=== PATIENT | male | born 1970 | race Caucasian/White ===

== ENCOUNTER 2020-06-24 07:47 | Emergency (ER) | payer OTHER ==
[~2020-06-24] VITALS: Ht 180.3 cm; Wt 80.3 kg
--- OUTSIDE RECORDS SUMMARY | ~2020-06-24 | XMS | Encounter Summary ---
Demographics + + + | Address | [address] | | | [place] [address] | + + + | Home Phone | | + + + | Preferred Language | Unknown | + + + | Marital Status | Single | + + + | Restoration Affiliation | 1038 | + + + | Race | or | + + + | Ethnic Group | Not or | + + + Author + + + | Author | [facility] | | | and [place] | + + + | Organization | [facility] | | | and [place] | + + + | Address | Unknown | + + + | Phone | Unavailable | + + + Support + + + + + | Name | Relationship | Address | Phone | + + + + + | Jeferson To | ECON | [address] | | | | | [place] | | | | | [address] | | + + + + + | Ileana To | ECON | [address] | | | | | [place] [address] | | + + + + + Care Team Providers + +------+ + | Care Clay Artisan Name | Role | Phone | + +------+ + | Alin Roy DO | PCP | | + +------+ + Encounter Details +--------+ + + + + | Date | Type | Department | Care Team | Description | +--------+ + + + + | 01/18/ | Hospital | [facility] | Harrison Perea, | | | 2012 | Encounter | MED CTR EMERGENCY | [place] [address] | | | | | [place] [address] | [facility] | | | | | [place] | [place] [address] | | | | | [address] | [phone] | | | | | [phone] | | | +--------+ + + + + Social History + +-------+ +--------+------+ | Tobacco Use | Types | Packs/Day | Years | Date | | | | | Used | | + +-------+ +--------+------+ | Never Assessed | | | | | + +-------+ +--------+------+ + + + | Sex Assigned at | Date Recorded | | | | + + + | Not on file | | + + + documented as of this encounter Medications at Time of Discharge + + + +---------+ + + | Medication | Sig | Dispensed | Refills | Start | End Date | | | | | | Date | | + + + +---------+ + + | Acetaminophen | TABS Take one-two by | | 0 | 06/14/20 | | | (TYLENOL EXTRA | mouth daily | | | 12 | 9 | | STRENGTH PO) | | | | | | + + + +---------+ + + | cyclobenzaprine | Take 10 mg by mouth | | 0 | 10/06/19 | | | (FLEXERIL) 10 mg | 3 times daily. | | | 12 | 9 | | tablet | | | | | | + + + +---------+ + + | gabapentin | two tablets by mouth | | 0 | 12/19/19 | | | (NEURONTIN) 300 mg | three times daily | | | 12 | 9 | | capsule | | | | | | + + + +---------+ + + | | Take 25 mg by mouth | | 0 | 06/14/20 | | | hydrochlorothiazide | Daily. | | | 12 | 9 | | 25 mg tablet | | | | | | + + + +---------+ + + | nortriptyline | one cap by mouth | | 0 | 01/25/20 | | | (PAMELOR) 10 MG | every at bedtime , | | | 12 | 9 | | capsule | increase by one | | | | | | | tablet every 3 days | | | | | | | until at 50 tablets. | | | | | + + + +---------+ + + | predniSONE | take 20mg three | | 0 | 06/14/20 | | | (DELTASONE) 10 mg | times a day | | | 12 | 9 | | tablet | | | | | | + + + +---------+ + + documented as of this encounter ED Notes Harrison Perea MD - 01/18/2013 9:08 [place] [address] Patient Name: BILLY TO Provider: Unit #: [id number] Location: : 1970 DATE: 01/18/2013 IDENTIFICATION: A 42-year-old male. CHIEF COMPLAINT: Right knee pain. HISTORY OF PRESENT ILLNESS: This patient presented to the emergency department for evaluat ion. He has had some right knee pain for the last 3 weeks, but today it popped and got roxanne re, prompting him to seek medical attention and came to the ER to be evaluated. He has had problems with his the right knee before. He says he needs to have surgery to clean out scar tissue and loose bodies, but he has been unable to do that, so he has just been getting by , but then today when the knee popped and became very painful, he was concerned and came to the ER for evaluation. PAST MEDICAL HISTORY: He has had left hand surgery and has chronic back pain. MEDICATIONS: Meloxicam. ALLERGIES: NONE REPORTED. SOCIAL HISTORY: He is giving his own history. He does smoke cigarettes, not working KILTR, no primary care provider. REVIEW OF SYSTEMS MUSCULOSKELETAL: Right knee pain, also has developed right knee swelling. All other systems reviewed and found negative. PHYSICAL EXAMINATION VITAL SIGNS: Blood pressure 146/89, pulse 73, respirations 16, temperature 95.8, saturatio n 98% on room air. GENERAL: Well-nourished 42-year-old male. HEENT: No trauma. Pupils equal. NECK: Supple, nontender. HEART: Regular. LUNGS: Clear. ABDOMEN: Soft, nontender. EXTREMITIES: Warm and well perfused. He does have some mild swelling of the right knee. Th e patella is ballottable. There is no open wound. No popliteal fossa mass. No obvious ligam ent laxity. Left knee exam is normal. BACK: Thoracic and lumbar spine are nontender. EMERGENCY DEPARTMENT COURSE: The patient was seen and examined shortly after arriving in [facility] emergency department. History and physical obtained, vital signs are noted. Radiographs are obtained of the right knee. He does have an effusion that is small to medium and there is a lot of DJD of the knee, but no obvious acute bony pathology. Alignment appears normal. We are placing him in a knee immobilizer and crutches. Outpatient treatment is indicated, he will be able to be discharged. IMPRESSION 1. ACUTE RIGHT KNEE PAIN, SUSPECT INTERNAL DERANGEMENT. 2. DEGENERATIVE JOINT DISEASE OF THE RIGHT KNEE. PLAN: The patient will be discharged in unchanged condition. Tramadol, continue meloxicam, knee brace and crutches for at least a week, toe-touch weightbearing. Follow up with prima care provider in 1 week for a recheck. Return immediately if he worsens or other problem s or concerns develop. DICTATED BY: Harrison Perea MD Emergency Medicine JOB #: [id number] EXT JOB #:[id number] <<Signature on File>> Harrison Perea MD 0224 < documented in this encounter Plan of Treatment Not on filedocumented as of this encounter Procedures + +--------+ + + + | Procedure Name | Priori | Date/Time | Associated Diagnosis | Comments | | | ty | | | | + +--------+ + + + | XR KNEE RIGHT 4 + VW | Routin | 01/19/2013 | | Results for this | | | e | 8:07 AM | | procedure are in the | | | | PDT | | results section. | + +--------+ + + + documented in this encounter Results XR Knee Right 4 + Vw (01/19/2013 8:07 AM PDT) + + | Specimen | + + | | + + + + + | Narrative | Performed At | + + + | [facility] | [place] | | Department [address] [facility] | | [ rep [address]] [ rep [facility] | | [facility]] Signed | - IMAGING | | | | | Patient Name: BILLY TO Physician: | | | BROW.01 : 1970 Age: 42 Sex: M Unit #: [id number] | | | Exam Date: 01/18/13 Location: ER | | | Report #: [id number] Page: | | | %(RAD)RES..mtdd.print.filter("pg") of %(RAD) | | | RES..mtdd.print.filter("tpg") | | | | | | Accession Number: [id number] | | | RIGHT KNEE 01/18/2013 CLINICAL HISTORY: RIGHT KNEE | | | PAIN. COMPARISON: None. FINDINGS: Frontal | | | and lateral views of the right knee. Mild tricompartmental changes. | | | Normal alignment. A small 6 mm lucency seen on one view projecting | | | over the intercondylar notch. Given its appearance this may | | | represent subchondral cyst due to overlying cartilage disease. No | | | fracture. No significant joint effusion. No radiopaque foreign | | | bodies. IMPRESSION: 1. NO ACUTE OSSEOUS | | | ABNORMALITY. 2. TRICOMPARTMENTAL DEGENERATIVE CHANGES. | | | Dictated Date/Time: 01/19/2013 08:07 Transcribed | | | Date/Time: 01/19/2013 09:13 Ortho Rn: | | | <<Signature on File>> | | | Kuldeep | | | Papo Castellon MD01/19/132102 <Electronically signed by Kuldeep Barros | | | Ravinder NICOLE> Kuldeep Castellon MD 01/19/13806 | | | Ortho Rn: LilaKutunitin Xklrmdkyztlcf75/20/13912 | | | | | + + + + + + + + | Performing | Address | City/State/Zipcode | Phone Number | | Organization | | | | + + + + + | [address] | [address] | [place] | [phone] | | [facility] | | [address] | | | - IMAGING | | | | + + + + + documented in this encounter Visit Diagnoses Not on filedocumented in this encounter
--- OUTSIDE RECORDS SUMMARY | ~2020-06-24 | XMS | Encounter Summary ---
Demographics + + + | Address | [address] | | | [place] [address] | + + + | Home Phone | | + + + | Preferred Language | Unknown | + + + | Marital Status | Single | + + + | Hindu Affiliation | 1038 | + + + | Race | or | + + + | Ethnic Group | Not or | + + + Author + + + | Author | [facility] | | | and [place] | + + + | Organization | [facility] | | | and [place] | + + + | Address | Unknown | + + + | Phone | Unavailable | + + + Support + + + + + | Name | Relationship | Address | Phone | + + + + + | Jeferson Rajput | ECON | [address] | | | | | [place] | | | | | [address] | | + + + + + | Ileana Rajput | ECON | [address] | | | | | [place] [address] | | + + + + + Care Team Providers + +------+ + | Care Rent And Housing Investigator Name | Role | Phone | + +------+ + PCP | Unavailable | + +------+ + Encounter Details +--------+ + + + + | Date | Type | Department | Care Team | Description | +--------+ + + + + | 09/10/ | Hospital | [facility] | [place], | | | 2008 | Encounter | MED CTR EMERGENCY | Kvng Escamilla MD [address] | | | | | [place] [address] | [address] [facility] | | | | | [place], [place] | [place] [address] | | | | | [address] | [phone] | | | | | [phone] | | | +--------+ + + + [...] + + documented as of this encounter Plan of Treatment Not on filedocumented as of this encounter Visit Diagnoses Not on filedocumented in this encounter"
--- OUTSIDE RECORDS SUMMARY | ~2020-06-24 | XMS | Encounter Summary ---
Demographics + + + | Address | [address] | | | [place] [address] | + + + | Home Phone | | + + + | Preferred Language | Unknown | + + + | Marital Status | Single | + + + | Restorationist Affiliation | 1038 | + + + | Race | or | + + + | Ethnic Group | Not or | + + + Author + + + | Author | [facility] | | | and [place] | + + + | Organization | [facility] | | | and [place] [...] [place] | | | | | [address] | | + + + + + | Ileana To | ECON | [address] | | | | | [place] [address] | | + + + + + Care Team Providers + +------+ + | Care Ribbon Lap Machine Tender Name | Role | Phone | + +------+ + | Alin Roy DO | PCP | | + +------+ + Encounter Details +--------+ + + + + | Date | Type | Department | Care Team | Description | +--------+ + + + + | 06/09/ | Hospital | [facility] | Zohreh Krishnamurthy | | | 2013 | Encounter | MED CTR EMERGENCY | DO Isaiah Car | | | | | [place] [address] | [place], [place] | | | | | [place], [place] | [address] | | | | | [address] | | | | | | [phone] | Ish [place], | | | | | | [place] [address] | | | | | | [place], [place] | | | | | | [address] | | | | | | | | +--------+ + + + [...] documented as of this encounter ED Notes Ish Reid MD - 06/09/2013 10:08 [place] [address] Patient Name: BILLY TO Provider: Unit #: [id number] Location: [facility] #: [id number] : 1970 DATE: 06/09/2013 HISTORY OF PRESENT ILLNESS: This is a 42-year-old male complaining of chronic low back brittany n, worse over the last 2 days. He has chronic left-sided sciatica and history of hypertensi on, smokes tobacco. He has had no recent injury. Describes his pain as 8/10. No bowel or bl adder incontinence. No saddle anesthesia. He has taken Meloxicam and tramadol in the past f or this. ALLERGIES: NO ALLERGIES. REVIEW OF SYSTEMS: Complete review of systems negative except as detailed in the HPI above . PHYSICAL EXAMINATION VITAL SIGNS: Blood pressure is 123/81, heart rate 78, respirations 16, afebrile, 99% on ro om air. GENERAL: No distress. HEENT: Pupils equal and reactive to light and accommodation. Extraocular movements intact. Oral mucosa moist. NECK: Supple, nontender. CARDIAC: Normal S1, S2. LUNGS: Sounds clear to auscultation bilaterally. ABDOMEN: Soft, nontender, nondistended. Normal bowel sounds. NEUROLOGIC: Cranial nerves 2 through 12 intact. Normal sensation, motor, and strength in a ll 4 extremities. Negative straight leg raise bilaterally. SKIN: No saddle anesthesia. BACK: He has tenderness to palpation over the left lower back. No bony tenderness, crepitu s or step- offs. ASSESSMENT AND PLAN: A 42-year-old with diagnosis of SCIATICA, ACUTE ON CHRONIC LEFT-SIDED . He was given tramadol in the ER, discharged home with Tramadol and Mobic. Will followup w [facility] primary care and return if any new concerning symptoms. DICTATED BY: Ish Reid M.D. Emergency Medicine JOB #: [id number] EXT JOB #:[id number] <<Signature on File>> Ish Reid MD0 06/11/132046 < documented in this encounter Plan of Treatment Not on filedocumented as of this encounter Visit Diagnoses Not on filedocumented in this encounter"
--- OUTSIDE RECORDS SUMMARY | ~2020-06-24 | XMS | Clinical Summary ---
Demographics + + + | Address | [address] | | | [place] [address] | + + + | Home Phone [...] Author + + + | Author | [facility] | | | and [place] | + + + | Organization | [facility] | | | and [place] | + + + | Address | Unknown | + + + | Phone | Unavailable | + + + Support + + + + + | Name | Relationship | Address | Phone | + + + + + | Jeferson Rajput | ECON | [address] | | | | | [place] | | | | | [address] | | + + + + + | Ileana Rajput | ECON | [address] | | | | | [place] [address] | | + + + + + Care Team Providers + +------+ + | Care Check Weigher Name | Role | Phone | + +------+ + | Kvng Olivares | STEPHANIE | | + +------+ + Allergies No Known Allergies Medications + + + +---------+------+------+-------+ | Medication | Sig | Dispensed | Refills | Star | End | Statu | | | | | | t | Date | s | | | | | | Date | | | + + + +---------+------+------+-------+ | methylPREDNISolone | Follow package | 21 | 0 | 12/2 | | Activ | | (MEDROL DOSEPAK) 4 | directions. | tablet | | 04/20 | | e | | mg tablet | | | | 19 | | | + + + +---------+------+------+-------+ Active Problems + + + | Problem | Noted Date | + + + | SCIATICA | 10/06/2011 | + + + | BACK PAIN, LUMBAR, CHRONIC | 10/06/2011 | + + + | HERNIATED LUMBAR DISC | 10/06/2011 | + + + | TOBACCO USE | 10/06/2011 | + + + | HYPERTENSION | | + + + | FAMILY HISTORY OF ASTHMA | | + + + Family History + + +------+ + | Medical History | Relation | Name | Comments | + + +------+ + | Colon cancer | Father | | | + + +------+ + | Diabetes, NIDDM | Father | | | + + +------+ + | Heart disease | Father | | 5v CABG | + + +------+ + | Hypertension | Father | | | + + +------+ + | No known problems | Maternal | | | | | Grandfath | | | | | er | | | + + +------+ + | No known problems | Maternal | | | | | Grandmoth | | | | | er | | | + + +------+ + | No known problems | Mother | | | + + +------+ + | No known problems | Paternal | | | | | Grandfath | | | | | er | | | + + +------+ + | No known problems | Paternal | | | | | Grandmoth | | | | | er | | | + + +------+ + + +------+ + + | Relation | Name | Status | Comments | + +------+ + + | Father | | | Colon Cancer | | | | (Age | | | | | 64) | | + +------+ + + | Maternal Grandfather | | | | + +------+ + + | Maternal Grandmother | | | | + +------+ + + | Mother | | Alive | | + +------+ + + | Paternal Grandfather | | | | + +------+ + + | Paternal Grandmother | | | | + +------+ + + Social History + + + +--------+------+ | Tobacco Use | Types | Packs/Day | Years | Date | | | | | Used | | + + + +--------+------+ | Current Every Day | Cigarettes | 0.5 | 15 | | | Smoker | | | | | + + + +--------+------+ + +---+---+---+ | Smokeless Tobacco: | | | | | Never Used | | | | + +---+---+---+ + + +---------+ + | Alcohol Use | Drinks/Week | oz/Week | Comments | + + +---------+ + | Yes | | | Ocassionally | + + +---------+ + + + + | Sex Assigned at | Date Recorded | | | | + + + | Not on file | | + + + Last Filed Vital Signs + + + + + | Vital Sign | Reading | Time Taken | Comments | + + + + + | Blood Pressure | 132/86 | 09/27/2019 10:53 AM | | | | | PST | | + + + + + | Pulse | 66 | 09/27/2019 10:53 AM | | | | | PST | | + + + + + | Temperature | - | - | | + + + + + | Respiratory Rate | 16 | 09/27/2019 10:53 AM | | | | | PST | | + + + + + | Oxygen Saturation | - | - | | + + + + + | Inhaled Oxygen | - | - | | | Concentration | | | | + + + + + | Weight | 97.1 kg (214 lb) | 09/27/2019 10:53 AM | | | | | PST | | + + + + + | Height | 180.3 cm (5' 11") | 09/27/2019 10:53 AM | | | | | PST | | + + + + + | Body Mass Index | 29.85 | 09/27/2019 10:53 AM | | | | | PST | | + + + + + Plan of Treatment + + +-------+ + | Health Maintenance | Due Date | Last | Comments | | | | Done | | + + +-------+ + | Hepatitis C | | | | | Screening | 2 | | | + + +-------+ + | Vaccine: | | | | | Pneumococcal 19-64 | 8 | | | | (1 of 1 - PPSV23) | | | | + + +-------+ + | Vaccine: | | | | | Dtap/Tdap/Td (1 - | 1 | | | | Tdap) | | | | + + +-------+ + | Vaccine: Influenza | | | | | (#1) | 0 | | | + + +-------+ + Results Not on filefrom Last 3 Months Insurance + +--------+ +--------+ +---------+--------+ | Payer | Benefi | Subscriber | Effect | Phone | Address | Type | | | t Plan | ID | berenice | | | | | | / | | Dates | | | | | | Group | | | | | | + +--------+ +--------+ +---------+--------+ | [employer] | [employer] | [id number] | | [phone] | | Medica | | MEDICAID HMO | HEALTH | | [phone]-Pr | 1 | | id | | | MDCD | | esent | | | | | | HMO OR | | | | | | + +--------+ +--------+ +---------+--------+ + +--------+ +--------+ + + | Guarantor Name | Accoun | Relation to | Date | Phone | Billing Address | | | t Type | Patient | of | | | | | | | | | | + +--------+ +--------+ + + | Billy Rajput | Person | Self [birth year] | NEED ADDRESS | | | al/Fam | | 1970 | [phone] | [place] | | | [place] | | | [address] (Home) | [address] | + +--------+ +--------+ + + Advance Directives + + + + + | Type | Date Recorded | Patient | Explanation | | | | Asp Net Developer | | + + + + + | Power of | | | | | Reinforced Ironworker | | | | + + + + + | Advance | | | | | Directive | | | | + + + + +
--- OUTSIDE RECORDS SUMMARY | ~2020-06-24 | XMS | Encounter Summary ---
Demographics + + + | Address | [address] | | | [place] [address] | + + + | Home Phone | | + + + | Preferred Language | Unknown | + + + | Marital Status | Single | + + + | Spiritism Affiliation | 1038 | + + + | Race | or | + + + | Ethnic Group | Not or | + + + Author + + + | Author | [facility] | | | and [place] | + + + | Organization | [facility] | | | and [place] | + + + | Address | Unknown | + + + | Phone | Unavailable | + + + Support + + + + + | Name | Relationship | Address | Phone | + + + + + | Jeferson Rajput | ECON | [address] | | | | | [place] | | | | | [address] | | + + + + + | Ileana Rajput | ECON | [address] | | | | | [place] [address] | | + + + + + Care Team Providers + +------+ + | Care Noodle Catalyst Maker Name | Role | Phone | + +------+ + | Alin Roy DO | PCP | | + +------+ + Encounter Details +--------+ + + + + | Date | Type | Department | Care Team | Description | +--------+ + + + + | 01/25/ | Hospital | [facility] | [place], | | | 2011 | Encounter | MED CTR EMERGENCY | Kvng Escamilla MD [address] | | | | | [place] [address] | [facility] | | | | | [place] | [place] [address] | | | | | [address] | [phone] | | | | | [phone] | | | +--------+ + + + [...] documented as of this encounter ED Notes Kvng Todd MD - 01/26/2012 5:03 PM PDTDATE: 01/26/2012 TIME: 1717. CHIEF COMPLAINT: Dental pain. PRIMARY CARE PHYSICIAN: Dr. Roy. HISTORY OF PRESENT ILLNESS: This is a 41-year-old male who returns to the ED. He complains today of d ental pain in his right lower central incisor. He has had chronic pain in this t ooth, it has been chr onically infected. He just finished antibiotics 3 days ago. He state s he is seeing the dentist [place] ochoa (today is ). He requests some additional pain m edications. He states he is going to run ou t of his tramadol tomorrow. He has had no fever s, chills, no difficulty speaking or swallowing. No ot her complaints. PAST MEDICAL HISTORY: He has had hypertension, chronic back pain. CURRENT MEDICATIONS 1. Tramadol. 2. Hydrochlorothiazide. 3. Gabapentin. ALLERGIES: NONE. REVIEW OF SYSTEMS: Ten-system review negative except as noted above. SOCIAL HISTORY: Smokes tobacco. PHYSICAL EXAMINATION VITAL SIGNS: Blood pressure 142/95, heart rate 93, respirations 18, temperature 98.2, O2 sa turation 9 9%. GENERAL APPEARANCE: male, sitting up, speaking normally. HEENT: Focused dental exam shows multiple carious teeth on the bottom. He has dentures on t he top. Ri ght lower central incisor is carious, quite decayed and tender. The gum line dariel ears normal. Mouth fl oor is soft. Mucous membranes are moist. Speech is normal. EMERGENCY DEPARTMENT COURSE: I went ahead and performed a dental block using 2.5 mL of bupi vacaine wi th epinephrine with good resultant anesthesia. At this point, I do not think thi s tooth needs additio nal antibiotics, it just simply needs to be pulled, which is the plan for Monday. I told the patient I could not refill his pain medications, he will need to ta lk to Dr. Roy for that. The patient was discharged ambulatory. IMPRESSION DENTALGIA. DICTATED BY: Kvng Todd MD Emergency Medicine JOB #: [id number] EXT JOB #:[id number] cc: Alin Roy, <Electronically Signed by Kvng Todd MD> 02/02/12 0850 documented in this encounter Plan of Treatment Not on filedocumented as of this encounter Visit Diagnoses Not on filedocumented in this encounter"
--- OUTSIDE RECORDS SUMMARY | ~2020-06-24 | XMS | Encounter Summary ---
Demographics + + + | Address | [address] | | | [place] [address] | + + + | Home Phone | | + + + | Preferred Language | Unknown | + + + | Marital Status | Single | + + + | Caodaism Affiliation | 1038 | + + + | Race | or | + + + | Ethnic Group | Not or | + + + Author + + + | Author | [facility] | | | and [place] | + + + | Organization | [facility] | | | and [place] [...] [place] | | | | | [address] | | + + + + + | Ileana Rajput | ECON | [address] | | | | | [place] [address] | | + + + + + Care Team Providers + +------+ + | Care Plater Production Name | Role | Phone | + +------+ + | Kvng Olivares | STEPHANIE | | + +------+ + Reason for Visit + + + | Reason | Comments | + + + | New Patient | | + + + | Back Pain | | + + + Evaluate & Treat (Routine) + +--------+ + + + + | Status | Reason | Specialty | Diagnoses / | Referred By | Referred To | | | | | Procedures | Contact | Contact | + +--------+ + + + + | Authorized | | Physical | Diagnoses | Marshall | Roni, | | | | Medicine and | Other | Kvng Mcgrath | Wilton Barros MD | | | | Rehabilitatio | spondylosis, | [address] | [address] | | | | n | lumbosacral | [address] | [address] | | | | | region | [place], | [place] | | | | | | [place] [address] | [address] Phone: | | | | | | Phone: | [phone] | | | | | | [phone] | Fax: | | | | | | Fax: | [phone] | | | | | | [phone] | | + +--------+ + + + + Encounter Details +--------+---------+ + + + | Date | Type | Department | Care Team | Description | +--------+---------+ + + + | 09/27/ | Office | [facility] | Ritu Mays | Other spondylosis | | 2019 | Visit | PHYSIATRY [address] | MARISSA Zamora [address] | with radiculopathy, | | | | [address] | [facility] [address] | lumbar region | | | | [place] | [address] [place] | (Primary Dx); | | | | [address] | [address] | Degenerative lumbar | | | | [phone] | | disc | +--------+---------+ + + + Social History + + + [...] + + documented as of this encounter Last Filed Vital Signs + + + [...] + + + documented in this encounter Patient Instructions Patient Instructions Ritu Mays PA-C - 09/27/2019 10:30 AM PST1. A prescriptio n for Medrol Dosepak which is steroid pills was sent to your pharmacy to be used when you nogueira ve a flare or if your pain is simply elevated. 2. An epidural steroid injection might help your leg pain however your insurance does not cover this service. If you decide you like to try to pursue [facility] [place] to cover this plea se call our office. 3. Continue with physical therapy and consider smoking cessation. How to Quit Smoking Smoking is one of the hardest habits to break. About half of allpeople who have ever smok ed have been able to quit. Most peoplewho still smoke want to quit. Here are some of the b est ways to stop smoking. Keep trying Most smokers make many attempts at quitting before they are successful. It s important no t to give up. Go cold turkey Mostformer smokers quit cold turkey (all at once). Trying to cut back gradually doesn't s eem to work as well, perhaps because it continues the smoking habit. Also, it is possible to inhale more while smoking fewer cigarettes. This results in the same amount of nicotine in your body. Get support Support programs can be a big help, especially for heavy smokers. These groups offer lectur es, ways to change behavior, and peer support. Here are some ways to find a support program: Free national quitline: 962-RUIP-TCQ (282-289-5914). Hospital quit-smoking programs. [place] [employer]: (337.596.8723). [place] [employer] (618-144-1301). Support at home is important too. Nonsmokers can offer praise and encouragement. If the smo ker in your life finds it hard to quit, encourage them to keep trying. Lkkb-jlu-yiohrtp medicines Nicotine replacement therapymay make quittingeasier. Certain aids, such as the nicotine patch, gum, and lozenges, are available without a prescription. Itis best to use these un ariel a doctor s care, though. The skin patch provides a steady supply of nicotine. Nicotine gum and lozenges givetemporary bursts of low levels of nicotine. Both methods reduce the craving for cigarettes. Warning: If youhave nausea, vomiting, dizziness, weakness, or a fa st heartbeat, stop using these products and see your doctor. Prescription medicines After reviewingyour smoking patterns and past attempts to quit, your doctor may offer a p rescription medicine such as bupropion, varenicline, a nicotine inhaler, or nasal spray. Eac h has advantages and side effects. Your doctor can review these with you. Health benefits of quitting The benefits of quitting start right away and keep improving the longer you go without smok ing.These benefits occur at any age. So whether you are 17 or 70, quitting is a good dec ision. Some of the benefits include: 20 minutes: Blood pressure and pulse return to normal. 8 hours: Oxygen levels return to normal. 2 days: Ability to smell and taste begin to improve as damaged nerves regrow. 2 to 3 weeks: Circulation and lung function improve. 1 to 9 months: Coughing, congestion, and shortness of breath decrease; tiredness decreas es. 1 year: Risk of heart attack decreases by half. 5 years: Risk of lung cancer decreases by half; risk of stroke becomes the same as a non smoker s. For more on how to quit smoking, try these online resources: Smokefree.gov "Clearing the Air" booklet from the National Cancer [place]: smokefree.gov/sites/defau lt/files/pdf/znvdegzt-ipl-exx-accessible.pdf Date Last Reviewed: 11/30/201619990933-1940 [employer]. [address] [place] [address], [place] [address]. All righ ts reserved. This information is not intended as a substitute for professional medical care. Always follow your healthcare professional's instructions. documented in this encounter Progress Notes Ritu Mays PA-C - 09/27/2019 10:30 AM PSTFormatting of this note might be diffe rent from the original. Rico Mays PA-C [address] [facility] [place] [place], [address] [place] [address] PHONE: FAX: PHYSIATRY HISTORY AND PHYSICAL EXAMINATION CHIEF COMPLAINT: Chief Complaint Patient presents with New Patient Back Pain HISTORY OF PRESENT ILLNESS: The patient is a 48 y.o. male with the complaint of back sympt oms that began several years ago. The patient describes symptom onset following no particul ar incident. The symptoms have been gradually worsening. He has had pain management in the past which has included medications like methadone and other pain pills. He reports gettin g off of all these medications and going to live with his sister. He currently reports bein g homeless and is not working. He rates the pain as moderate rated a 5/10. The symptoms are daily, continuous. He descri bes the pain as aching, numbing and sharp. He reports that the homeless camp makes mornings very difficult because it is so cold. The patient describes leg symptoms that occur on right side. The leg symptoms account for greater than or equal to 25 % of his symptoms. The leg symptoms are intermittent and the sy mptoms travels from the right lower extremity in a possible L3 or L5 dermatome. His descrip tion is nonspecific. The patient also describes numbness into the phalanx but without derma tomal distribution. The patient does not report any change in bowel or bladder function recently. His symptoms improve with rest, changing position and bending. His symptoms worsen with standing, sitting, walking, kneeling and twisting. He has Medications and PT. Patient has recently attended PT x1 session in the last month. The holidays have required some rescheduling and he had a flare in his pain with the home e xercises prescribed by the therapist. . PAST MEDICAL HISTORY: Past Medical History: Diagnosis Date Cannabis-related disorder (HCC) Degeneration of lumbar intervertebral disc Essential hypertension Family history of colon cancer Nicotine dependence, cigarettes, uncomplicated Spondylolysis, lumbosacral region PAST SURGICAL HISTORY: Past Surgical History: Procedure Laterality Date HAND DEBRIDEMENT Left Skin on L Hand MOUTH SURGERY CURRENT MEDICATIONS: Current Outpatient Medications Medication Sig Dispense Refill methylPREDNISolone (MEDROL DOSEPAK) 4 mg tablet Follow package directions. 21 tablet 0 No current facility-administered medications for this visit. ALLERGIES: No Known Allergies SOCIAL HISTORY: The patient reports that he has been smoking cigarettes. He has a 7.50 pack-year smoking h istory. He has never used smokeless tobacco. He reports current alcohol use. He reports curr ent drug use. Drug: Marijuana. FAMILY HISTORY: Family History Problem Relation Age of Onset No known problems Mother Hypertension Father Heart disease Father 53 5v CABG Colon cancer Father 64 Diabetes, NIDDM Father No known problems Maternal Grandmother No known problems Maternal Grandfather No known problems Paternal Grandmother No known problems Paternal Grandfather REVIEW OF SYSTEMS: GENERALLY: No fever, no night sweats, no anemia, no fatigue, + recent profound weight frances nges. EYES: No eye problems, no impaired sight, no use of corrective lenses, no eye injury, no d ouble vision, no transient blindness. EARS, NOSE, AND THROAT: No changes in taste or smell, no hearing difficulty, no ringing in the ears, no ear drainage, no ear injury, no dizziness, no voice changes, no difficulty swa llowing, no significant snoring, no sleep apnea/CPAP, no sinus problems, no major dental wor k. NEUROLOGICALLY: Please see the review of systems discussed above in the history of present illness. In addition, He has pain in neck, pain back, back injury. PSYCHIATRIC: No depression, no difficulty sleeping, no anxiety, no bipolar disorder. CARDIOVASCULAR: No heart attacks, no heart murmur, no heart fluttering, no chest pain, no ankle swelling. LUNG DISEASE: No shortness of breath, no cough, no tuberculosis, no bloody cough, no asthm a, no emphysema/COPD. GASTROINTESTINAL: No bowel disease, no nausea or vomiting, no rectal bleeding, no constipa tion, no fecal stool incontinence, no liver/gallbladder disease, no abdominal pain, no ulcer s. KIDNEY DISEASE: No urinary frequency, no painful or difficult urination, no urinary incont inence, no bladder problems, no impotence. ENDOCRINE: No diabetes, no thyroid disease, no osteopenia or osteoporosis, no breast drain age. SKIN: No breast lumps, no skin disease or skin changes, no rashes/itches. HEMATOLOGIC/LYMPHATIC: No enlarged lymph nodes, no easy or unusual bleeding, no personal h istory of cancer. RHEUMATOLOGIC: No joint pain/arthritis, no rheumatoid arthritis. PHYSICAL EXAMINATION: Blood pressure 132/86, pulse 66, resp. rate 16, height 1.803 m (5' 11"), weight 97.1 kg (21 4 lb). Body mass index is 29.85 kg/m. GENERAL: Bilyl Rajput is in no acute distress with unlabored respirations. He does not a ppear uncomfortable throughout the exam today. HEENT: Head: Normocephalic/atraumatic with no areas of recent trauma. Eyes: Normal sclerae without icterus. Ears: No drainage or tenderness. Nasopharynx: Clear without drainage. Oropharynx: Clear without erythema. NECK (ANTERIOR): Supple and without palpable masses. CHEST: Unlabored respirations HEART: No lower extremity edema noted ABDOMEN: Soft, non-tender, non-distended, and without palpable masses. The patient is not obese. NEUROLOGICAL: The patient is awake, alert, and oriented to time, place, person. He follows simple and complex commands. His speech is fluent. He comprehends speech well. He has no apparent deficits with short or skilled nursing memory. Cranial nerves 2-12 appear grossly intact. Sensory exam does not show diminished sensation to light touch in the bilateral lower extr emities. EXTREMITIES: No cyanosis, clubbing, or edema. Distal pulses are palpable. PHYSICAL EXAM: MENTAL STATUS: He is awake, alert, and oriented. He follows simple and complex commands. His speech is fluent, he comprehends speech well, and he repeats well. He has no apparent deficits with short or skilled nursing memory. CRANIAL NERVES: II: Acuity is intact. [place] are full to confrontation. III, IV, : The pupils are reactive. Extraocular movements are intact. No ptosis is note d. V: Facial sensation is intact and symmetric. VII: Facial movements are symmetric. VIII: Hearing is intact bilaterally. IX, X: The uvula and palate move appropriately. XI: Shrug is equal bilaterally. XII: Tongue protrusion is midline. MOTOR EXAM: (5 IS NORMAL) * Indicates pain limited MUSCLE/ MOVEMENT: RIGHT LEFT Hip Flexion 5 5 Hip Extension 5 5 Knee Flexion 5 5 Knee Extension 5 5 Dorsiflexion 5 5 Extensor Hallicus Longus 5 5 Plantarflexion 5 5 REFLEXES: (2 OR 2+ IS NORMAL) REFLEX: RIGHT LEFT PATELLAR 1 with distraction 1 with distraction ACHILLES 1 1 GAIT: Gait is steady. Patient can walk on his tiptoes and heels without difficulty. Lumbar flex ion is demonstrated without pain complaints. Lumbar extension produces low back pain. Posi tive facet loading at L4-5 and L5-S1 bilateral. PERIPHERAL NERVE/MISC: There is no tenderness to palpation of her bilateral trochanteric bursa or SI joint region . Straight leg raise is negative bilaterally. Sit slump negative bilateral Nick's test of the hips is negative bilaterally. TEST AND RADIOGRAPHIC REVIEW: His imaging was reviewed in detail today during the visit. The MRI from 11/20/2017 shows L2 -3 new disc bulge compared to prior study. L3-4 disc bulge with facet hypertrophy and moder ate central stenosis. L4-5 disc bulge improved since prior study with moderate central cristian l stenosis. L5-S1 shows disc osteophyte complex with facet hypertrophy with moderately roxanne re central stenosis. Disc desiccation noted with moderate to severe narrowing of both neura l foramen. Lumbar x-rays from 11/10/2017 shows no major instability. ASSESSMENT: NEUROSURGICAL DIAGNOSES: Encounter Diagnoses Name Primary? Other spondylosis with radiculopathy, lumbar region Yes Degenerative lumbar disc GENERAL DIAGNOSES: Past Medical History: Diagnosis Date Cannabis-related disorder (HCC) Degeneration of lumbar intervertebral disc Essential hypertension Family history of colon cancer Nicotine dependence, cigarettes, uncomplicated Spondylolysis, lumbosacral region PLAN: Billy Rajput presented today, and it was a pleasure seeing this patient and assessing his problems. 1) Today we discussed the patient's differential diagnosis with the likely primary issue be ing LUMBAR RADICULOPATHY and lumbar spondylosis. Patient's description of symptoms, physical exam, and imaging suggest this diagnosis at this time. 2) I counseled patient on treatment options which included conservative self management usi ng OTC NSAIDs/Ice and heat packs, physical therapy, prescription medications, epidural stero id injection, neuromodulation therapies, as well as possible surgical intervention. Unfortu nately his insurance does not cover spinal injections such as epidural steroid injections. 3) Imaging: As descibed above in radiology review. 4) The patient has had significant conservative care including medications (NSAIDS and narc otics), PT (multiple sessions over the years) and home care companion. Unfortunately Billy Rajput continues to have significant discomfort. It appears to me that the pain is primarily coming from L5-S1 disc osteophyte complex with severe neuroforaminal narrowing bilateral an d lumbar spondylosis. I did feel that Billy Rajput would be a good candidate for return to physical therapy and additional conservative care including smoking cessation. I did feel that Billy Rajput would be a good candidate for medication: Medrol Dosepak was prescribed to reduce pain. 5) Patient will follow up with me 3 weeks post injection/as needed to discuss any imaging a nd/or progress with today's treatment plan. 6) If current treatment plan is insufficient for symptom relief we could try TFESI possibly under [facility] care if the patient would like to apply as the next therapy option. I spent 30 minutes in visit with Billy Rajput today with the majority of time spent couns elling the patient on his diagnosis, options for his care, and coordinating his care. 09/27/19 ELECTRONICALLY SIGNED BY: Rico Mays PA-C, 09/27/2019 11:20 AM documented in this encounter Plan of Treatment Not on filedocumented as of this encounter Visit Diagnoses + + | Diagnosis | + + | Other spondylosis with radiculopathy, lumbar region - Primary | + + | Degenerative lumbar disc Degeneration of lumbar or lumbosacral intervertebral disc | + + documented in this encounter
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
--- OUTSIDE RECORDS SUMMARY | ~2020-06-24 | XMS | Encounter Summary ---
Demographics + + + | Address | [address] | | | [place] [address] | + + + | Home Phone | | + + + | Preferred Language | Unknown | + + + | Marital Status | Single | + + + | Sikh Affiliation | 1038 | + + + | Race | or | + + + | Ethnic Group | Not or | + + + Author + + + | Author | [facility] | | | and [place] | + + + | Organization | [facility] | | | and [place] | [...] [place] | | | | | [address] | | + + + + + | Ileana Rajput | ECON | [address] | | | | | [place] [address] | | + + + + + Care Team Providers + +------+ + | Care Copy Manager Name | Role | Phone | + +------+ + | Alexandru Murphy DO | STEPHANIE | | + +------+ + Encounter Details +--------+ + + + + | Date | Type | Department | Care Team | Description | +--------+ + + + + | 05/23/ | Imaging | [facility] | Provider, | | | 2018 | Exam | MED CTR EXTERNAL | [address] | | | | | IMAGING [address] | Carlos Hooper. | | | | | [address] | [place] [address] | | | | | [place] [address] | | | | | | [phone] | | | +--------+ + + + [...] + +--------+ + + + | XR LUMBAR SPINE 4 + | Routin | 11/10/2017 | | Results for this | | VW | e | 3:20 PM | | procedure are in the | | | | PST | | results section. | + +--------+ + + + documented in this encounter Results XR Lumbar Spine 4 + Vw (11/10/2017 3:20 PM PST) + + | Specimen | + + | | + + + + + | Narrative | Performed At | + + + | External films for comparison only | [facility] | | | | | No results will be in the chart. | | + + + + +---------+ + + | Performing | Address | City/State/Zipcode | Phone Number | | Organization | | | | + +---------+ + + | [facility] | | | | + +---------+ + + documented in this encounter Visit Diagnoses Not on filedocumented in this encounter"
--- OUTSIDE RECORDS SUMMARY | ~2020-06-24 | XMS | Encounter Summary ---
Demographics + + + | Address | [address] | | | [place] [address] | + + + | Home Phone | | + + + | Preferred Language | Unknown | + + + | Marital Status | Single | + + + | Scientology Affiliation | 1038 | + + + | Race | or | + + + | Ethnic Group | Not or | + + + Author + + + | Author | [facility] | | | and [place] | + + + | Organization | [facility] | | | and [place] [...] [place] | | | | | [address] | | + + + + + | Ileana Rajput | ECON | [address] | | | | | [place] [address] | | + + + + + Care Team Providers + +------+ + | Care Refrigerator Cabinetmaker Name | Role | Phone | + +------+ + | Alin Roy DO | PCP | | + +------+ + Encounter Details +--------+ + + + + | Date | Type | Department | Care Team | Description | +--------+ + + + + | 11/15/ | Hospital | [facility] | Darren Tracy, | | | 2011 | Encounter | MED CTR EMERGENCY | [place] [address] | | | | | [place] [address] | [place] | | | | | [place] | [address] | | | | | [address] | | | | | | [phone] | | | +--------+ + + + [...]
--- OUTSIDE RECORDS SUMMARY | ~2020-06-24 | XMS | Encounter Summary ---
Demographics + + + | Address | [address] | | | [place] [address] | + + + | Home Phone | | + + + | Preferred Language | Unknown | + + + | Marital Status | Single | + + + | Christianity Affiliation | 1038 | + + + | Race | or | + + + | Ethnic Group | Not or | + + + Author + + + | Author | [facility] | | | and [place] | + + + | Organization | [facility] | | | and [place] [...] [place] | | | | | [address] | | + + + + + | Ileana Rajput | ECON | [address] | | | | | [place] [address] | | + + + + + Care Team Providers + +------+ + | Care Whistle Punk Name | Role | Phone | + +------+ + | Alin Roy DO | PCP | | + +------+ + Encounter Details +--------+ + + + + | Date | Type | Department | Care Team | Description | +--------+ + + + + | 01/09/ | Hospital | [facility] | Darren Tracy, | | | 2011 | Encounter | MED CTR EMERGENCY | [place] [address] | | | | | [place] [address] | [place] | | | | | [place] | [address] | | | | | [address] | | | | | | [phone] | | | +--------+ + + + [...]
--- OUTSIDE RECORDS SUMMARY | ~2020-06-24 | XMS | Encounter Summary ---
Demographics + + + | Address | [address] | | | [place] [address] | + + + | Home Phone | | + + + | Preferred Language | Unknown | + + + | Marital Status | Single | + + + | Catholic Affiliation | 1038 | + + + | Race | or | + + + | Ethnic Group | Not or | + + + Author + + + | Author | [facility] | | | and [place] | + + + | Organization | [facility] | | | and [place] | [...] [place] | | | | | [address] | | + + + + + | Ileana To | ECON | [address] | | | | | [place] [address] | | + + + + + Care Team Providers + +------+ + | Care Resident Services Coordinator Name | Role | Phone | + +------+ + | Alin Roy DO | PCP | | + +------+ + Encounter Details +--------+ + + + + | Date | Type | Department | Care Team | Description | +--------+ + + + + | 01/01/ | Hospital | [facility] | Dee Dee Benoit | | | 2012 | Encounter | MED CTR EMERGENCY | MD [address] | | | | | CENTER [address] | [facility], | | | | | [place], [place] | [place] [address] | | | | | [address] | [phone] | | | | | [phone] | | | | | | | Ish Reid MD | | | | | | [address] | | | | | | [place], [place] | | | | | | [address] | | | | | | | [...] encounter ED Notes Ish Reid MD - 01/01/2013 9:22 [place] [address] Patient Name: BILLY TO Provider: Unit #: [id number] Location: : 1970 DATE: 01/01/2013 CHIEF COMPLAINT: This is a 42-year-old male complaining of left knee pain. He says it has been worse over the last week. HISTORY OF PRESENT ILLNESS: He says he has been walking a lot up to 15 miles a day because he does not have transportation and he lives out of town about 7 miles. He has not noticed any swelling, but he describes the pain as 10/10. He says he has taken some ibuprofen and Tylenol for it in the past. He has a history of hypertension, smoking. He says his right kn ee has been bothering him a little bit too. He has not noticed any deformities. ALLERGIES: NO KNOWN ALLERGIES. HOME MEDICATIONS: 1. Ibuprofen. 2. Tramadol. PRIMARY CARE PHYSICIAN: He does not have a primary care provider. REVIEW OF SYSTEMS Complete review of systems negative except as detailed in the HPI above. PHYSICAL EXAMINATION VITAL SIGNS: Blood pressure is 154/103, heart rate 99, respirations 16, afebrile. GENER AL: Appears to be in no distress. HEENT: Pupils equal and reactive to light and accommodation. Extraocular movements intact. NEUROLOGIC: Cranial nerves 2 through 12 intact. Normal sensation, motor, and strength in all 4 extremities. Alert and oriented x3. SKIN: No rashes or lesions. EXTREMITIES: On exam of the knees, both knees are symmetrical with no evidence of edema. H e has no tenderness with range of motion of the right knee. He has tenderness where he poin ts to the left knee just over the anterior knee to the medial portion of the patella, both inferior and superior. He has negative Dalila's, negative anterior posterior drawer, no va lgus or varus instability. He has complete normal range of motion of the knees bilaterally. ASSESSMENT AND PLAN: THIS IS A 42-YEAR-OLD WITH LEFT KNEE PAIN. Given the increased stress he is putting on his knee, in the progressive nature of this, i t could be patellofemoral pain syndrome versus an arthritic pain. In any case, without evid ence of effusion or any knee instability, no indication for imaging currently. The patient will be given a prescription for Meloxicam and information on how to contact your primary c are provider and discharged to home. Recommend anti-inflammatory medication such as Meloxic am. Ice, rest, and follow up with primary care. DICTATED BY: Ish Reid M.D. Emergency Medicine JOB #: [id number] EXT JOB #:[id number] <<Signature on File>> MANUELA Shelton 01/[birth year]13 1924 < documented in this encounter Plan of Treatment Not on filedocumented as of this encounter Visit Diagnoses Not on filedocumented in this encounter"
--- OUTSIDE RECORDS SUMMARY | ~2020-06-24 | XMS | Encounter Summary ---
Demographics + + + | Address | [address] | | | [place] [address] | + + + | Home Phone | | + + + | Preferred Language | Unknown | + + + | Marital Status | Single | + + + | Buddhist Affiliation | 1038 | + + + | Race | or | + + + | Ethnic Group | Not or | + + + Author + + + | Author | [facility] | | | and [place] | + + + | Organization | [facility] | | | and [...] [place] | | | | | [address] | | + + + + + | Ileana Rajput | ECON | [address] | | | | | [place] [address] | | + + + + + Care Team Providers + +------+ + | Care Trademark Affixer Name | Role | Phone | + +------+ + | Alin Roy DO | PCP | | + +------+ + Encounter Details +--------+ + + + + | Date | Type | Department | Care Team | Description | +--------+ + + + + | 01/25/ | Hospital | [facility] | Harrison Perea, | | | 2012 | Encounter | MED CTR EMERGENCY | [place] [address] | | | | | [place] [address] | [facility] | | | | | [place] | [place] [address] | | | | | [address] | [phone] | | | | | [phone] | | | +--------+ + + + [...]
--- OUTSIDE RECORDS SUMMARY | ~2020-06-24 | XMS | Encounter Summary ---
Demographics + + + | Address | [address] | | | [place] [address] | + + + | Home Phone | | + + + | Preferred Language | Unknown | + + + | Marital Status | Single | + + + | Mormonism Affiliation | 1038 | + + + | Race | or | + + + | Ethnic Group | Not or | + + + Author + + + | Author | [facility] | | | and [place] | + + + | Organization | [facility] | | | and [place] [...] [place] | | | | | [address] | | + + + + + | Ileana Rajput | ECON | [address] | | | | | [place] [address] | | + + + + + Care Team Providers + +------+ + | Care Military Communications Specialist Name | Role | Phone | + +------+ + PCP | Unavailable | + +------+ + Encounter Details +--------+ + + + + | Date | Type | Department | Care Team | Description | +--------+ + + + + | 10/24/ | Emergency | [facility] | Jesus Alberto Warner, | Unspecified Disorder | | 2008 | | [facility]ICAL [facility]ENTER | [address] | of the Teeth and | | | | EMERGENCY CENTER | [place], [place] | Supporting | | | | [address] | [address] | Structures | | | | [place], [place] | [phone] | | | | | [address] | | | | | | [phone] | | | +--------+ + + + [...] + | Diagnosis | + + | Unspecified disorder of the teeth and supporting structures | + + documented in this encounter"
--- OUTSIDE RECORDS SUMMARY | ~2020-06-24 | XMS | Encounter Summary ---
Demographics + + + | Address | [address] | | | [place] [address] | + + + | Home Phone | | + + + | Preferred Language | Unknown | + + + | Marital Status | Single | + + + | Religion Affiliation | 1038 | + + + | Race | or | + + + | Ethnic Group | Not or | + + + Author + + + | Author | [facility] | | | and [place] | + + + | Organization | [facility] | | | and [place] [...] [place] | | | | | [address] | | + + + + + | Ileana Rajput | ECON | [address] | | | | | [place] [address] | | + + + + + Care Team Providers + +------+ + | Care Firestopper Installer Name | Role | Phone | + +------+ + | Alin Roy DO | PCP | | + +------+ + Encounter Details +--------+ + + + + | Date | Type | Department | Care Team | Description | +--------+ + + + + | 12/31/ | Hospital | [facility] | Ish Reid, | | | 2011 | Encounter | MED CTR EMERGENCY | [place] [address] | | | | | [place] [address] | [place] | | | | | [place] | [address] | | | | | [address] | | | | | | [phone] | | | +--------+ + + + [...] encounter ED Notes Ish Reid MD - 01/01/2012 6:41 PM PDTDATE: 01/01/2012 CHIEF COMPLAINT: This is a 41-year-old male with a chief complaint of low back pain, chroni c in natur e, with some left-sided radiation. It has been ongoing for the last 20 years but worse recently. He r ecently ran out of his tramadol. He states he did have a primary care doctor, but his insurance is ch anging his primary doctor to someone else. He describes th e pain as 8/10. He does smoke. He has had s urgery on his left hand. No bowel or bladder in continence. No saddle anesthesia. No fevers. ALLERGIES: NO KNOWN ALLERGIES. HOME MEDICATIONS 1. Flexeril. 2. Neurontin. 3. Tramadol, which he is now out of. REVIEW OF SYSTEMS A complete review of systems negative except as detailed in the HPI above. PHYSICAL EXAMINATION VITAL SIGNS: Blood pressure 149/95, heart rate 92, respirations 16, afebrile, 98% on room a ir. GENERAL: No apparent distress. HEENT: Pupils equal and reactive to light and accommodation. Extraocular movements intact. Oral mucos a moist. NECK: Supple, nontender. CARDIAC: Normal S1, S2. LUNGS: Clear to auscultation bilaterally. ABDOMEN: Soft, nontender, nondistended. Normal bowel sounds. NEUROLOGIC: Cranial nerves 2 through 12 intact. He has normal sensation, motor, and strengt h in all 4 extremities. He has tenderness in the left paralumbar area, some radiation into his buttock, no sadd le anesthesia. Negative straight leg raise. ASSESSMENT AND PLAN: A 41-year-old diagnosis CHRONIC LOW BACK PAIN. He was given tramadol here, a script for tramadol and followup with a primary care provider . Return i f any new concerning symptoms. DICTATED BY: Ish Reid M.D. Emergency Medicine JOB #: [id number] EXT JOB #:[id number] <Electronicall y Signed by Ish Reid MD> 01/02/12 [id number] documented in this encounter Plan of Treatment Not on filedocumented as of this encounter Visit Diagnoses Not on filedocumented in this encounter"
--- OUTSIDE RECORDS SUMMARY | ~2020-06-24 | XMS | Encounter Summary ---
Demographics + + + | Address | [address] | | | [place] [address] | + + + | Home Phone | | + + + | Preferred Language | Unknown | + + + | Marital Status | Single | + + + | Mosque Affiliation | 1038 | + + + | Race | or | + + + | Ethnic Group | Not or | + + + Author + + + | Author | [facility] | | | and [place] | + + + | Organization | [facility] | | | and [place] [...] [place] | | | | | [address] | | + + + + + | Ileana Rajput | ECON | [address] | | | | | [place] [address] | | + + + + + Care Team Providers + +------+ + | Care Parachute Inspector Name | Role | Phone | + +------+ + | Alin Roy DO | PCP | | + +------+ + Encounter Details +--------+ + + + + | Date | Type | Department | Care Team | Description | +--------+ + + + + | 11/15/ | Hospital | [facility] | Alin Roy, | | | 2011 | Encounter | MED CTR XRAY [address] | [place] [address] | | | | | [place] | [place] | | | | | [place] [address] | [address] | | | | | [phone] | | | +--------+ + + + [...]
--- OUTSIDE RECORDS SUMMARY | ~2020-06-24 | XMS | Encounter Summary ---
Demographics + + + | Address | [address] | | | [place] [address] | + + + | Home Phone | | + + + | Preferred Language | Unknown | + + + | Marital Status | Single | + + + | Latter-Day Affiliation | 1038 | + + + | Race | or | + + + | Ethnic Group | Not or | + + + Author + + + | Author | [facility] | | | and [place] | + + + | Organization | [facility] | | | and [place] | [...] [place] | | | | | [address] | | + + + + + | Ileana Rajput | ECON | [address] | | | | | [place] [address] | | + + + + + Care Team Providers + +------+ + | Care Delivery Sales Worker Name | Role | Phone | + +------+ + PCP | Unavailable | + +------+ + Encounter Details +--------+ + + + + | Date | Type | Department | Care Team | Description | +--------+ + + + + | 05/23/ | Hospital | [facility] | Pey[place], | | | 2009 | Encounter | MED CTR EMERGENCY | Kvng Escamilla MD [address] | | | | | [place] [address] | [address] [facility] | | | | | [place], [place] | [place] [address] | | | | | [address] | [phone] | | | | | [phone] | | | +--------+ + + + [...]
--- OUTSIDE RECORDS SUMMARY | ~2020-06-24 | XMS | Encounter Summary ---
Demographics + + + | Address | [address] | | | [place] [address] | + + + | Home Phone | | + + + | Preferred Language | Unknown | + + + | Marital Status | Single | + + + | Jain Affiliation | 1038 | + + + | Race | or | + + + | Ethnic Group | Not or | + + + Author + + + | Author | [facility] | | | and [place] | + + + | Organization | [facility] | | | and [place] [...] [place] | | | | | [address] | | + + + + + | Ileana Rajput | ECON | [address] | | | | | [place] [address] | | + + + + + Care Team Providers + +------+ + | Care Appeals Board Referee Name | Role | Phone | + +------+ + | Alin Roy DO | PCP | | + +------+ + Encounter Details +--------+ + + + + | Date | Type | Department | Care Team | Description | +--------+ + + + + | 06/14/ | Abstract | [place] [facility] | [facility] | | | 2011 | | Conversion Location | SR | | | | | [address] | | | | | | [place], [place] | | | | | | [address] | | | | | | [phone] | | | +--------+ + + + [...] + + + | Blood Pressure | 142/90 | 01/25/2012 12:00 AM | | | | | PDT | | + + + + + | Pulse | - | - | | + + + + + | Temperature | - | - | | + + + + + | Respiratory Rate | - | - | | + + + + + | Oxygen Saturation | - | - | | + + + + + | Inhaled Oxygen | - | - | | | Concentration | | | | + + + + + | Weight | 118.4 kg (261 lb) | 01/25/2012 12:00 AM | | | | | PDT | | + + + + + | Height | 180.3 cm (5' 11") | 10/06/2011 12:00 AM | | | | | PST | | + + + + + | Body Mass Index | 36.4 | 10/06/2011 12:00 AM | | | | | PST | | + + + + + documented in this encounter Plan of Treatment Not on filedocumented as of this encounter Visit Diagnoses Not on filedocumented in this encounter
--- OUTSIDE RECORDS SUMMARY | ~2020-06-24 | XMS | Encounter Summary ---
Demographics + + + | Address | [address] | | | [place] [address] | + + + | Home Phone | | + + + | Preferred Language | Unknown | + + + | Marital Status | Single | + + + | Adventism Affiliation | 1038 | + + + | Race | or | + + + | Ethnic Group | Not or | + + + Author + + + | Author | [facility] | | | and [place] | + + + | Organization | [facility] | | | and [place] | [...] [place] | | | | | [address] | | + + + + + | Ileana Rajput | ECON | [address] | | | | | [place] [address] | | + + + + + Care Team Providers + +------+ + | Care Profiler Hand Name | Role | Phone | + +------+ + | Kvng Olivares | STEPHANIE | | + +------+ + Encounter Details +--------+ + + + + | Date | Type | Department | Care Team | Description | +--------+ + + + + | 09/19/ | Abstract | [facility] | [place], | | | 2019 | | PHYSIATRY [address] | [address] | | | | | [address] [facility] [address] | [place] | | | | | [place] | [facility] [place] [place] [address] | | | | | [address] | | | | | | [phone] | | | +--------+ + + + + Social History + + + +--------+------+ | Tobacco Use | Types | Packs/Day | Years | Date | | | | | Used | | + + + +--------+------+ | Current Every Day | Cigarettes | | | | | Smoker | | | [...]
--- OUTSIDE RECORDS SUMMARY | ~2020-06-24 | XMS | Encounter Summary ---
Demographics + + + | Address | [address] | | | [place] [address] | + + + | Home Phone | | + + + | Preferred Language | Unknown | + + + | Marital Status | Single | + + + | Uatsdin Affiliation | 1038 | + + + | Race | or | + + + | Ethnic Group | Not or | + + + Author + + + | Author | [facility] | | | and [place] | + + + | Organization | [facility] | | | and [...] [place] | | | | | [address] | | + + + + + | Ileana To | ECON | [address] | | | | | [place] [address] | | + + + + + Care Team Providers + +------+ + | Care Projection Welding Machine Operator Name | Role | Phone | + +------+ + | Alin Roy DO | PCP | | + +------+ + Encounter Details +--------+ + + + + | Date | Type | Department | Care Team | Description | +--------+ + + + + | 01/13/ | Hospital | [facility] | Kvng Bee | | | 2012 | Encounter | MED CTR EMERGENCY | Jamie Otoole MD | | | | | CENTER [address] | [address] | | | | | [place] | [place], [place] | | | | | [address] | [id number] | | | | | [phone] | | | | | | | Zohreh Krishnamurthy | | | | | | DO [address] | | | | | | [place], [place] | | | | | | [id number] | | | | | | | [...] as of this encounter ED Notes Zohreh Krishnamurthy MD - 01/14/2013 11:01 [place] [address] Patient Name: BILLY TO Provider: Unit #: [id number] Location: : 1970 DATE: 01/13/2013 HISTORY OF PRESENT ILLNESS: The patient is a 42-year-old male who comes in with chief comp laint of dental pain. The patient is mostly edentulous except for a few bottom teeth. I thi nk he has 6 bottom teeth in the front left. He states that his most central one on the righ t-hand side is causing him pain. He states that he has not been able to get in to see a den tist. He went over to [facility], but was unable to get in on time. He is denyin g any fevers or chills. PAST MEDICAL HISTORY: Significant for hypertension. SOCIAL HISTORY: The patient smokes about half a pack per day. He denies illicit drug use o r alcohol use. He has had one hand surgery in the past. CURRENT MEDICATIONS: He currently takes Aspirin. ALLERGIES: HE HAS NO KNOWN DRUG ALLERGIES. PHYSICAL EXAMINATION VITAL SIGNS: The patient's vital signs are stable, temperature is 99.4, respiratory rate 1 8. Heart rate 75, blood pressure 145/95, and is 98% on room air. GENERAL: The patient is alert, he appears to be in no acute distress. HEENT: Head and neck are normal on inspection. He has no meningismal signs. Mouth and thro at again, he is edentulous except for about 6 teeth on the bottom front and one of those is tender to percussion. He has no evidence of any dental swelling at this time. His ears and nose are normal on inspection. RESPIRATORY: He has no respiratory distress. CARDIOVASCULAR: He is regular rate and rhythm. EMERGENCY ROOM COURSE: The patient received some Motrin and some tramadol. He is diagnosed with dental pain . PLAN: I gave him a prescription for for antibiotic and tramadol for pain. The pat ient voiced understanding of his discharge instructions and ambulated from the ER without d ifficulty. DIAGNOSIS: DENTAL PAIN. DICTATED BY: Josep Krishnamurthy DO Emergency Medicine JOB #: [id number] EXT JOB #:[id number] <<Signature on File>> Shelly Martinez O04/ 1311 <Electronically signed by S R. VonHaven DO> documented in this encounter Plan of Treatment Not on filedocumented as of this encounter Visit Diagnoses Not on filedocumented in this encounter"
--- OUTSIDE RECORDS SUMMARY | ~2020-06-24 | XMS | Encounter Summary ---
Demographics + + + | Address | [address] | | | [place] [address] | + + + | Home Phone [...] + | Organization | [facility] | | | and [place] [...] [place] | | | | | [address] | | + + + + + | Ileana To | ECON | [address] | | | | | [place] [address] | | + + + + + Care Team Providers + +------+ + | Care Guide Cruise Name | Role | Phone | + +------+ + | Alin Roy DO | PCP | | + +------+ + Encounter Details +--------+ + + + + | Date | Type | Department | Care Team | Description | +--------+ + + + + | 08/31/ | [facility] | [facility] | Allan Hsieh | | | 2011 | Encounter | MED CTR EMERGENCY | MD [place] [address] | | | | | [place] [address] | [facility] | | | | | [place] | [place] [address] | | | | | [address] | [phone] | | | | | [phone] | | | +--------+ + + + [...] documented as of this encounter ED Notes Allan Hsieh MD - 08/31/2012 7:03 [place] [address] Patient Name: BILLY TO Provider: Unit [facility] [id number] [id number] 1970 DATE: 08/31/2012 PRIMARY PHYSICIAN: None. CHIEF COMPLAINT: Back injury. HISTORY OF PRESENT ILLNESS: The patient is a 41-year-old male who was moving a sofa, and h e was waling down a wheelchair ramp and accidentally stepped off the side of the ramp. He w ent down about a foot and then landed basically straight leg and wrenched his left lower ba ck. He does not have any other complaints. No neurologic complaints. 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 PAST MEDICAL HISTORY: Chronic back pain and hypertension. CURRENT MEDICATIONS: None. ALLERGIES: NONE. SOCIAL HISTORY: Smokes cigarettes, but he has started exercising regularly and that has he lped his back. REVIEW OF SYSTEMS: Otherwise review of systems all negative except noted above. PHYSICAL EXAMINATION VITAL SIGNS: Blood pressure 164/94, heart rate 95, respiratory rate 18, temperature 98.1, pulse oximetry 97% on room air. GENERAL: He is not in acute distress, sitting on the bed. He moves with some back stiffnes s. BACK: Exam reveals no spine pain at all. No pelvis pain. He is tender in the left lower ba ck muscles, particularly along the iliac crest and then all the way up sort of the trunk mu scles on the lateral flank and up towards the ribs, but most of the pain is actually coming from the lower back muscles. He has normal motor and sensory function in the lower extremi ties. IMPRESSION: LEFT LOWER BACK STRAIN. I do not see signs of significant trauma to suggest ne ed for an x- ray at this time. PLAN: The patient will be discharged home. I told him to take ibuprofen 800 mg every 8 rubia rs for the next 4-5 days and then I gave him 16 Vicodin to take if needed for pain if not r elieved by that. Told him to expect to be more sore tomorrow and then gradually get better. DICTATED BY: Robert Hsieh MD Emergency Medicine JOB #: [id number] EXT JOB #:[id number] <<Signature on File>> Shelly Hsieh MD1 11/08/11 1856 < documented in this encounter Plan of Treatment Not on filedocumented as of this encounter Visit Diagnoses Not on filedocumented in this encounter"
--- OUTSIDE RECORDS SUMMARY | ~2020-06-24 | XMS | Encounter Summary ---
Demographics + + + | Address | [address] | | | [place] [address] | + + + | Home Phone | | + + + | Preferred Language | Unknown | + + + | Marital Status | Single | + + + | Buddhism Affiliation | 1038 | + + + | Race | or | + + + | Ethnic Group | Not or | + + + Author + + + | Author | [facility] | | | and [place] | + + + | Organization | [facility] | | | and [...] [place] | | | | | [address] | | + + + + + | Ileana Rajput | ECON | [address] | | | | | [place] [address] | | + + + + + Care Team Providers + +------+ + | Care Biochemistry Teacher Name | Role | Phone | + [...] | | | [address] | [place] [address] | | | | | [place] [address] | | | | | | [phone] | | | +--------+ + + + [...] | + +--------+ + + + | MRI LUMBAR SPINE WO | Routin | 11/20/2017 | | Results for this | | CONTRAST | e | 11:40 AM | | procedure are in the | | | | PST | | results section. | + +--------+ + + + documented in this encounter Results MRI Lumbar Spine wo Contrast (11/20/2017 11:40 AM PST) + + | Specimen | + [...]
--- OUTSIDE RECORDS SUMMARY | ~2020-06-24 | XMS | Encounter Summary ---
Demographics + + + | Address | [address] | | | [place] [address] | + + + | Home Phone | | + + + | Preferred Language | Unknown | + + + | Marital Status | Single | + + + | Yarsani Affiliation | 1038 | + + + | Race | or | + + + | Ethnic Group | Not or | + + + Author + + + | Author | [facility] | | | and [place] | + + + | Organization | [facility] | [...] [place] | | | | | [address] | | + + + + + | Ileana Rajput | ECON | [address] | | | | | [place] [address] | | + + + + + Care Team Providers + +------+ + | Care Gas Examiner Name | Role | Phone | + +------+ + | Alin Roy DO | PCP | | + +------+ + Encounter Details +--------+ + + + + | Date | Type | Department | Care Team | Description | +--------+ + + + + | 02/01/ | Hospital | [facility] | Alin Roy, | | | 2011 | Encounter | MED CTR OP REHAB | DO [address] | | | | | [address] | [place] | | | | | [place] [address] | [address] | | | | | [phone] | | | +--------+ + + + [...]
--- OUTSIDE RECORDS SUMMARY | ~2020-06-24 | XMS | Encounter Summary ---
Demographics + + + | Address | [address] | | | [place] [address] | + + + | Home Phone | | + + + | Preferred Language | Unknown | + + + | Marital Status | Single | + + + | Bahai Affiliation | 1038 | + + + | Race | or | + + + | Ethnic Group | Not or | + + + Author + + + | Author | [facility] | | | and [place] | + + + | Organization | [facility] | | | and [place] [...] [place] | | | | | [address] | | + + + + + | Ileana Rajput | ECON | [address] | | | | | [place] [address] | | + + + + + Care Team Providers + +------+ + | Care Clinical Care Coordinator Name | Role | Phone | + +------+ + PCP | Unavailable | + +------+ + Encounter Details +--------+ + + + + | Date | Type | Department | Care Team | Description | +--------+ + + + + | 05/03/ | Hospital | [facility] | | | | 2008 | Encounter | MED CTR EMERGENCY | | | | | | CENTER [address] | | | | | | [place] | | | | | | [address] | | | | | | [phone] | | | +--------+ + + + [...]
--- OUTSIDE RECORDS SUMMARY | ~2020-06-24 | XMS | Encounter Summary ---
Demographics + + + | Address | [address] | | | [place] [address] | + + + | Home Phone | | + + + | Preferred Language | Unknown | + + + | Marital Status | Single | + + + | Advent Affiliation | 1038 | + + + | Race | or | + + + | Ethnic Group | Not or | + + + Author + + + | Author | [facility] | | | and [place] | + + + | Organization | [facility] | | | and [...] [place] | | | | | [address] | | + + + + + | Ileana Rajput | ECON | [address] | | | | | [place] [address] | | + + + + + Care Team Providers + +------+ + | Care Light Rail Signal Technician Name | Role | Phone | + +------+ + PCP | Unavailable | + +------+ + Encounter Details +--------+ + + + + | Date | Type | Department | Care Team | Description | +--------+ + + + + | 03/31/ | Hospital | [facility] | Darren Tracy, | | | 2010 | Encounter | MED CTR EMERGENCY | MD [address] | | | | | CENTER [address] | [place] | | | | | [place] | [id number] | | | | | [address] | | | | | | [phone] | | | +--------+ + + + [...] documented as of this encounter ED Notes Demarcus Darren A. - 03/31/2011 3:45 PM PDTDATE: 03/31/2011 CHIEF COMPLAINT: Thoracic strain. HISTORY OF PRESENT ILLNESS: Billy is a 40-year-old male who was lifting a TV on his shou lder yeste rday. He kind of twisted wrong and felt a sudden bad pain in his back. He said jesus pratt has had problems wi th his back in the same spot before, it has kind of flared up. He has been trying to rest, but he joseph ps getting spasms in his back. He has had no nausea, vomit ing, diarrhea. No shortness of breath. No o ther associated symptoms, but the pain has not been going away, so he came to the ER for further eval uation. PAST MEDICAL HISTORY: Significant for asthma and hypertension. SOCIAL HISTORY: He smokes. REVIEW OF SYSTEMS: All systems reviewed were negative, except for HPI. PHYSICAL EXAM GENERAL: This is a 40-year-old male who looks quite uncomfortable. INITIAL VITALS: BP 137/88, pulse 70, respirations 16, temp 98.3, saturations 99% on room a ir. HEENT: Pupils equally round and reactive to light. Mucous membranes are moist. Nasal passa ges clear. Trachea is midline. CHEST: Lungs are clear to auscultation bilaterally. No rales, no wheezes. CARDIOVASCULAR: Rate and rhythm are regular. BACK: He has diffuse 1+ tenderness into the right scapula, any kind of movement of his tho rax causes pain in the area, and some spasm. ABDOMEN: Nondistended. EXTREMITIES: No edema. Strength is 5/5 in both upper extremities. ASSESSMENT: THIS IS A 40-YEAR-OLD MALE WITH A THORACIC STRAIN. He was given a shot of Toradol and discharged home with some Vicodin and Flexeril, and told to come b ack if it gets worse. DICTATED BY: Darren Tracy M.D. Emergency Medicine JOB #: [id number] EXT JOB #:[id number] <Electronicall y Signed by Darren Tracy MD> 04/08/11 1715 documented in this encounter Plan of Treatment Not on filedocumented as of this encounter Visit Diagnoses Not on filedocumented in this encounter"
--- OUTSIDE RECORDS SUMMARY | ~2020-06-24 | XMS | Encounter Summary ---
Demographics + + + | Address | [address] | | | [place] [address] | + + + | Home Phone | | + + + | Preferred Language | Unknown | + + + | Marital Status | Single | + + + | Pentecostal Affiliation | 1038 | + + + | Race | or | + + + | Ethnic Group | Not or | + + + Author + + + | Author | [facility] | | | and [place] | + + + | Organization | [facility] | | | and [place] [...] [place] | | | | | [address] | | + + + + + | Ileana Rajput | ECON | [address] | | | | | [place] [address] | | + + + + + Care Team Providers + +------+ + | Care Outside Machinist Apprentice Name | Role | Phone | + +------+ + | Alin Roy DO | PCP | | + +------+ + Encounter Details +--------+ + + + + | Date | Type | Department | Care Team | Description | +--------+ + + + + | 10/27/ | Hospital | [facility] | | | | 2011 | Encounter | MED CTR EMERGENCY | | | | | | CENTER [address] | | | | | | [place] | | | | | | [address] | | | | | | [phone] | | | +--------+ + + + [...] documented as of this encounter ED Notes Alin Moralez MD - 10/27/2011 5:37 PM PSTDATE: 10/27/2011 CHIEF COMPLAINT: Leg pain. HISTORY OF PRESENT ILLNESS: The patient is a 41-year-old male complaining of leg pain radi ating from his back on the right side down into the leg. It sometimes gets so bad it starts to twitch. He has not had bowel or bladder problems. No specific weakness. He has had some back pain associated with it. He has had previous episodes like this before and has seen h is physician. He has been diagnosed with sciatica. No previous surgeries on his back. He nogueira s not had fevers. Denies any direct injury. He has been able to ambulate. No other complai nts currently. PAST MEDICAL HISTORY: Hypertension, hand surgery. ALLERGIES: NONE. MEDICATIONS 1. Tylenol. 2. Gabapentin. 3. Meloxicam. SOCIAL HISTORY: He does smoke. REVIEW OF SYSTEMS: As per HPI. PHYSICAL EXAMINATION VITAL SIGNS: He is afebrile respirations 18, heart rate 108, BP 162/96, and O2 saturation 100%. GENERAL: He is alert, oriented, appears uncomfortable. Otherwise, nontoxic. HEENT: Normocephalic, atraumatic. Mucous membranes are moist. Oropharynx is clear. NECK: Without any meningismus. CARDIOVASCULAR: Regular rate and rhythm. No murmur, rub, or gallop. PULMONARY: Clear to auscultation. No wheezes, rales, or rhonchi. BACK: Examination reveals no significant tenderness, crepitus, step-off, or deformity. Str aight leg raise test is negative bilaterally. He has good strength of dorsiflexion, plantar flexion, and big toe extension. EMERGENCY DEPARTMENT COURSE: It does appear he is having some sciatica, having an exacerba tion of his pain. He was treated with Dilaudid and Toradol here. We will go ahead and start him on a short course of Dale. Return if worsening symptoms or other complaints. DIAGNOSIS: SCIATICA. DISPOSITION: The patient discharged home. Follow up with his family doctor. Return for bow el or bladder problems, worse symptoms, or other complaints. DICTATED BY: Alin Moralez MD Emergency Medicine JOB #: [id number] EXT JOB #:[id number] <Electronicall y Signed by Alin Moralez MD> 10/29/11 1353 documented in this encounter Plan of Treatment Not on filedocumented as of this encounter Visit Diagnoses Not on filedocumented in this encounter"
--- OUTSIDE RECORDS SUMMARY | ~2020-06-24 | XMS | Encounter Summary ---
Demographics + + + | Address | [address] | | | [place] [address] | + + + | Home Phone [...] Author + + + | Author | [facility] | | | and [place] | + + + | Organization | [facility] | | | and [...] [place] | | | | | [address] | | + + + + + | Ileana To | ECON | [address] | | | | | [place] [address] | | + + + + + Care Team Providers + +------+ + | Care Certified Coatings Inspector Name | Role | Phone | + +------+ + | Alin Roy DO | PCP | | + +------+ + Encounter Details +--------+ + + + + | Date | Type | Department | Care Team | Description | +--------+ + + + + | 09/12/ | Hospital | [facility] | Darren Tracy, | | | 2011 | Encounter | MED CTR EMERGENCY | [place] [address] | | | | | [place] [address] | [place] | | | | | [place] | [address] | | | | | [address] | | | | | | [phone] | | | +--------+ + + + [...] documented as of this encounter ED Notes Darren Tracy MD - 09/12/2012 8:32 [place] [address] Patient Name: BILLY TO Provider: Unit #: [id number] [id number] 1970 DATE: 09/12/2012 CHIEF COMPLAINT: Tooth pain. HISTORY OF PRESENT ILLNESS: Billy is a 41-year-old male with a history of tooth pain ove r the last couple of days. His teeth have been hurting more than usual, so he came to the E R for further evaluation. He has had no fever, cough, chills, sweats, nausea, vomiting, teofilo rrhea, or other associated symptoms. He said he has been unable to get in to see a dentist due to financial reasons. PAST MEDICAL HISTORY: Negative. SOCIAL HISTORY: He smokes. REVIEW OF SYSTEMS All systems reviewed were negative except as noted in HPI. PHYSICAL EXAMINATION GENERAL: Shows a 41-year-old male in no apparent distress. INITIAL VITAL SIGNS: BP 146/96, pulse 87, respirations 18, temperature 96.8, saturations 9 6% on room air. HEENT: Pupils equally round and reactive to light. Mucous membranes are moist. Nasal passa ges are clear. Trachea is midline. He has very poor dentition with advanced dental caries b ut no obvious dental abscess. CHEST: Lungs are clear to auscultation bilaterally. No rales, no wheezes. CARDIOVASCULAR: Rate and rhythm is regular. ABDOMEN: Nondistended. EXTREMITIES: No edema. SKIN: No rash. ASSESSMENT THIS IS A 41-YEAR-OLD MALE WITH TOOTH PAIN. He is discharged home. He is given some penicillin and some tramadol and told to see a adrian erazot as soon as possible and discharged home. DICTATED BY: Darren Tracy M.D. Emergency Medicine JOB #: [id number] EXT JOB #:[id number] <<Signature on File>> Darren Tracy MD0 10/02/12 1448 < documented in this encounter Plan of Treatment Not on filedocumented as of this encounter Visit Diagnoses Not on filedocumented in this encounter"
--- OUTSIDE RECORDS SUMMARY | ~2020-06-24 | XMS | Encounter Summary ---
Demographics + + + | Address | [address] | | | [place] [address] | + + + | Home Phone | | + + + | Preferred Language | Unknown | + + + | Marital Status | Single | + + + | Congregation Affiliation | 1038 | + + + | Race | or | + + + | Ethnic Group | Not or | + + + Author + + + | Author | [facility] | | | and [place] | + + + | Organization | [facility] [...] [place] | | | | | [address] | | + + + + + | Ileana To | ECON | [address] | | | | | [place] [address] | | + + + + + Care Team Providers + +------+ + | Care Shear Grinder Operator Helper Name | Role | Phone | + +------+ + | Alin Roy DO | PCP | | + +------+ + Encounter Details +--------+ + + + + | Date | Type | Department | Care Team | Description | +--------+ + + + + | 01/20/ | Hospital | [facility] | Dee Dee Benoit | | | 2012 | Encounter | MED CTR EMERGENCY | MD [address] | | | | | [place] [address] | [facility] | | | | | [place], [place] | [place] [address] | | | | | [address] | [phone] | | | | | [phone] | | | | | | | Zohreh Churchill | | | | | | DO [address] | | | | | | [place], [place] | | | | | | [id number] | | | | | | | [...] encounter ED Notes Zohreh Churchill MD - 01/20/2013 10:20 [place] [address] Patient Name: BILLY TO Provider: Unit #: [id number] Location: : 1970 DATE: 01/20/2013 HISTORY OF PRESENT ILLNESS: The patient is a 42-year-old male who comes in with chief comp laint of pain to his right knee. The patient was just seen here a couple days ago, had an x -ray done that showed a track compartment degeneration. The patient was put into a knee imm obilizer and crutches and he comes back now because he has not been able to see the orthope dic doctor yet and he is out of his tramadol. The patient is denying any other issues. He i s having no fevers, no chills, no sore throat, no cough, no trouble breathing, no abdominal type complaints and no urinary type symptoms. He states the knee has gotten no better, no worse. Is exactly the same as it was when he was seen the other night. PAST MEDICAL HISTORY: Significant for chronic low back problems and he has pretty extensiv e history of dental problems. SOCIAL HISTORY: The patient smokes about 1/2 pack per day, denies illicit drug use or alco hol use. CURRENT MEDICATIONS: Include: 1. Meloxicam. 2. Tramadol that he is out of. PHYSICAL EXAMINATION VITAL SIGNS: The patient's vital signs are stable. His temperature is 96.3, respiratory ra te 18, heart rate is 96, and blood pressure 158/93, he is 98% on room air. EXTREMITIES: Focused examination of the patient's right knee, the patient has no evidence of any swelling. The patient has no evidence of any redness or warmth or infective-type pro cess. He does have a little bit of effusion noted just above the patella. He can flex the k nee, and he does have some clicking and popping when doing so, and can go to about 45 degre es and can extend the knee back out. He is unable to weight bear at this time. His exam dariel ears to be unchanged from when he was seen here a few days ago. I did review his x-rays and the radiology report. DIAGNOSIS: PERSISTENT RIGHT KNEE PAIN. PLAN: He is advised to keep using a knee immobilizer, stay on his crutches, and he still n eeds to follow up to see Orthopedic. I gave him a prescription for tramadol to be taken wei ry 4-6 hours as needed for pain. He should ice and elevate the leg as much as possible and keep his followup appointments and he needs to use his crutches and stay off the leg. DICTATED BY: Josep Churchill DO Emergency Medicine JOB #: [id number] EXT JOB #:[id number] <<Signature on File>> Shelly Martinez O02/07/13 1538 <Electronically signed by Jono Churchill DO> documented in this encounter Plan of Treatment Not on filedocumented as of this encounter Visit Diagnoses Not on filedocumented in this encounter"
[~2020-06-24 07:47] MED LIST: CYCLOBENZAPRINE10 MG PO; FLEXERIL10 MG PO; NAPROXEN375 MG PO; NORCO 5-325 TA1 EACH PO; TRAMADOL HCL50 MG; TRAMADOL HCL50 MG PO; TYLENOL WITH C1 EACH PO; TYLENOL325 MG PO
[2020-06-24] MEDS ORDERED: PERCOCET 5-3251 EACH PO (09:32)
== END 2020-06-24 09:45 | disposition home or self-care (01) ==
LOC: ED 07:47
DX: S22.32XA Fracture of one rib, left side, initial encounter for closed fracture (principal); W18.2XXA Fall in (into) shower or empty bathtub, initial encounter; I10 Essential (primary) hypertension; F17.200 Nicotine dependence, unspecified, uncomplicated
CPT/HCPCS: 71101; 73502; 96374; 99283-25; J1885